=== PATIENT | female | born 1955 | race Caucasian/White ===

== ENCOUNTER 2016-04-19 09:01 | Day surgery (SDC) | payer OTHER ==
[~2016-04-19] VITALS: Ht 160 cm; Wt 50.3 kg
[2016-04-19] VITALS (10 sets, daily range): BP systolic 108–132; BP diastolic 55–76; PULSE 56–110; RESP 14–18; Ht 160 cm; Wt 50.3 kg
[~2016-04-19 09:01] MED LIST: ALPR0.25 PO; D5W-0.45 NACL + KCL 20 MEQ 1,000 ML IV SCH; EPHEDrine SULFATE 50 MG/5 ML SYG ONE
--- NOTE | 2016-04-19 10:48 | HPN ---
Date/Time of Note Date/Time of Note DATE: 04/19/16 TIME: 10:48 Interval H&P Admission Note Pt. seen H&P reviewed: No system changes Pt. seen H&P reviewed. No system changes (I attest that I have seen and examined the patient and reviewed the operation in detail, as well as its risks , benefits and alternatives of the operation). I attest that I have seen and examined the patient and reviewed in detail the operation, and its associated risks, benefits and alternative. I have answered all the patient's questions to the best of my ability and the patient wishes to proceed. Please refer to rest of electronic medical record for additional updates. CHINYERE MONDRAGON M.D. Apr 19, 2016 10:48
[2016-04-19] MEDS ORDERED: MIDAZOLAM 1 MG/ML 2 ML INJ ONE (11:03)
[2016-04-19] MEDS ORDERED: FENTAnyl 50 MCG/ML VIAL ONE (11:03)
[2016-04-19] MEDS ORDERED: ONDANSETRON 4 MG INJ ONE (11:12)
[2016-04-19] MEDS ORDERED: FAMOTIDINE 20 MG INJ ONE (11:12)
[2016-04-19] MEDS ORDERED: ROCURONIUM 50 MG INJ ONE (11:12)
[2016-04-19] MEDS ORDERED: METOCLOPRAMIDE 10 MG INJ ONE (11:12)
[2016-04-19] MEDS ORDERED: PROPOFOL 20 ML ONE (11:12)
[2016-04-19] MEDS ORDERED: DIPHENHYDRAMINE 50 MG INJ ONE (11:13)
[2016-04-19] MEDS ORDERED: DEXAMETHASONE 4 MG/ML 1 ML INJ ONE (11:13)
[2016-04-19] MEDS ORDERED: CEFAZOLIN 1 GM INJ ONE (11:16)
[2016-04-19] MEDS ORDERED: BUPIVACAINE 0.25%/EPI (SDV) 30 ML INJ ONE (11:26)
[2016-04-19] MEDS ORDERED: HYDROmorphONE (0.2 MG/ML) 10ML SYG IV PRN ×3 (11:30)
[2016-04-19] MEDS ORDERED: ONDANSETRON 4 MG INJ IV PRN (11:30)
[2016-04-19] MEDS ORDERED: EPHEDrine SULFATE 50 MG/5 ML SYG IV PRN (11:30)
[2016-04-19] MEDS ORDERED: FENTAnyl 50 MCG/ML VIAL IV PRN ×3 (11:30)
[2016-04-19] MEDS ORDERED: morphine (1 MG/ML) 10ML SYRINGE IV PRN ×3 (11:30)
[2016-04-19] MEDS ORDERED: GLYCOPYRROLATE 0.4 MG INJ ONE (11:51)
[2016-04-19] MEDS ORDERED: NEOSTIGMINE 3 MG/3 ML SYRINGE ONE (11:51)
--- NOTE | 2016-04-19 12:18 | OPR ---
Date/Time of Note Date/Time of Note DATE: 04/19/16 TIME: 12:18 Operative Report Operative Findings [facility] INPATIENT OPERATIVE NOTE PLACE OF SERVICE: [facility] DATE OF SURGERY: 04/19/2016 PREOPERATIVE DIAGNOSIS: 1. Anxiety 2. History of above-mentioned anal carcinoma. 3. History of above-mentioned endometrial carcinoma. 4. Status post left groin hernia repair in 1981. 5. section in 1985. 6. Total abdominal hysterectomy and bilateral salpingo-oophorectomy 2015. 7. S/p groin dissection and removal of the L groin chain lymphatic tissues 11/27, followed by radiation to L buttock region 12/25/15-02/05/16 (52.2 Gy, 29 fx x 1.8 Gy) POSTOPERATIVE DIAGNOSIS: 1. Anxiety 2. History of above-mentioned anal carcinoma. 3. History of above-mentioned endometrial carcinoma. 4. Status post left groin hernia repair in 1981. 5. section in 1985. 6. Total abdominal hysterectomy and bilateral salpingo-oophorectomy 2015. 7. S/p groin dissection and removal of the L groin chain lymphatic tissues 11/27, followed by radiation to L buttock region 12/25/15-02/05/16 (52.2 Gy, 29 fx x 1.8 Gy) OPERATION: 1. Excisional resection of left buttock skin lesion with removal of 5 cm x 2 cm x 8 mm oval area and primary closure of skin SURGEON: Chinyere Mondragon M.D. DIRECTOR WORKFORCE MANAGEMENT: None ANESTHESIA: General endotracheal tube anesthesia ANESTHESIOLOGIST: Patsy Bueno M.D. BRIEF SUMMARY: An otherwise uncomplicated excision of left buttock skin lesion was performed with findings of no obvious residual mass and great response to radiation therapy. BRIEF HISTORY: The patient is a very pleasant 60-year-old lady well known to me from prior initial visit with us on 12/07/2015 with history of anal cancer with local recurrence in her groin as well as along the edge of previous radiation field of the perianal skin who is s/p groin dissection and removal of the L groin chain lymphatic tissues 11/28/15, followed by radiation to L buttock region 12/25/15-02/05/16 (52.2 Gy, 29 fx x 1.8 Gy) and tolerated it well. PET-CT 03/14/16 showed complete metabolic response and no new lesions/abnormalities. Overall she is doing well and at this time, can undergo resection of the site of the L groin lesion. Will likely be able to do this without a flap. Discussed surgery in detail with patient and his son and reviewed risks, benefits and alternatives. Answered all of the patient's and son's questions and obtained their consent for the operation. For a detailed report of my consultation with patient and family, please refer to my separate consultation note. Updated Clinical Summary: The patient is a very pleasant 60-year-old lady with history significant for anxiety as well as stage I endometrial cancer status post total abdominal hysterectomy and bilateral salpingo-oophorectomy laparoscopically with mini- laparotomy by Dr. Alex Delgado who has been battling stage III anorectal squamous cell carcinoma which was diagnosed on 09/03/2014 during colonoscopy with finding of poorly differentiated squamous cell carcinoma. The patient had a CT scan on 09/11/2014 that showed fatty liver disease and enhancing masses in the anus predominantly in the left side measuring 4.6 cm in greatest dimension and uterine fibroids. There is also normal left superficial inguinal lymph node present highly concerning for johnathon metastasis. Abnormal thickening of the endometrium measuring 2.5 cm which may reflect endometrial hyperplasia was also noted. The patient underwent a TAHBSO on 05/26/2015 of which the pathology shows superficial myometrial invasion of two microscopic foci infiltrating the stroma by a couple of millimeters, grade I endometria with adenocarcinoma. The patient underwent radiation therapy. No significant other comorbid issues who was found to have anal malignancy in the form of poorly differentiated squamous cell carcinoma after colonoscopy on 09/03/2014. This was stage IIIB, T3, N2, and [address] scan on 09/11/2014 showing fatty liver and enhancing masses in the anus predominantly in the left side measuring 4.6 cm in greatest diameter and uterine fibroids. Abnormal left superficial inguinal lymph node highly concerning for johnathon metastasis was also found. Incidentally, there was abnormal thickening of the endometrium measuring 2.5 cm which may reflect endometrial hyperplasia. The patient was treated with radiation with overall, delivery of 54 Gy in 30 fractions that was completed on 11/28/2014. Patient has been under surveillance and a CT scan on 07/03/2015 showed no evidence for recurrent anorectal mass or evidence to suggest johnathon or metastatic disease within the abdomen and pelvis was found. The patient herself noted a nodule to the left of anus on the left cheek and after further investigation a PET CT done on 11/14/2015 demonstrated hypermetabolic cutaneous thickening along the left gluteal fold likely inflammatory or infectious and a tiny mass in the left inguinal lymph node region, nonspecific and may be related to above cutaneous process was found. The area of the left groin appears to be larger in size than previous CT images. She was presented in a multidisciplinary fashion and the consensus of the group was that this area should be biopsied with the presumption of recurrent anal squamous cell at the margin of previous radiation field around the anus as well as presence of metastatic disease in the groin. Patient also has been found to have grade I endometrial malignancy and she underwent total abdominal hysterectomy as well as bilateral salpingo- oophorectomy on 05/26/2015 with finding of a minute foci of endometrial carcinoma which was thought to be grade I. Otherwise, the patient has doing well and she does not have any pain complaints. Her bowel movements have been normal and no issues with bleeding. No problems with shortness of breath or cough. No difficulties with significant weight gain or weight loss. No other major positives or major negatives in a complete 14-point review of systems. S/ p groin dissection and removal of the L groin chain lymphatic tissues 11/28/15, followed by radiation to L buttock region 12/25/15-02/05/16 (52.2 Gy, 29 fx x 1.8 Gy). STATEMENT OF THE INFORMED CONSENT: The patient and family appeared to understand the risks of the operation to include, but not be limited to risk of postoperative pain and scar tissue, possible infection or bleeding requiring other interventions such as opening the wound, placement of drainage catheters, or other operative interventions; possible injury to surrounding to structures including bowel, bladder, bile duct, or blood vessels, or solid organs such as liver, kidney, or pancreas requiring other interventions or procedures; possible leakage of bowel from anastomotic sites or suture lines causing significant increase in morbidity and mortality and requiring multiple interventions including but not limited to, placement of drainage catheters, imaging studies, as well as operative interventions; possible other source of sepsis such as urinary tract infections or pneumonias, or other sources of potentially life threatening problems such as deep venous thrombus formation causing pulmonary embolism, myocardial arrhythmias and infarctions, and even . We also briefly discussed the potential need to receive blood products and their potential complications of blood transfusion reactions, transmission of infections, or other complications. After careful consideration of all their options, the patient and family appeared to understand and wished to proceed with surgery. DESCRIPTION OF PROCEDURE: After obtaining informed consent, the patient was brought into the operating room and was placed in a normal supine position, where successful general endotracheal tube anesthesia was performed. Intravenous access was already in place and intravenous antimicrobials had been appropriately chosen and dosed prior to the operation. The patient was then placed in a prone position. The patient's perianal and buttock skin was prepped and draped in the usual sterile fashion. We then called a surgical time-out where the patient's identification, date of , nature of the operation, allergies, presence of intravenous antimicrobials, presence of needed equipment , and any other concerns were reviewed and agreed upon by all members of the operating room team. We then started the operation by marking the area of the resection, keeping the area of interest in the center of the oval region which was located 2 cm away from the perineum. An use combination of scalpel as well as cautery to remove a 5 cm x 2 cm x 8 mm area of skin. We marked the specimen with long suture marking the lateral apex of the oval and short suture marking the superior edge and sent this to pathology for permanent sections. We then reapproximated the skin flaps using 3-0 Vicryl interrupted suture followed by reapproximating the skin with 2-0 nylon suture mattress style interrupted. We then injected the area with quarter percent Marcaine with epinephrine. Light dressing was then applied. At the end of the operation, both the sponge count and needle count were reportedly correct x2. The patient tolerated the procedure without any reported complications. ESTIMATED BLOOD LOSS: Less than 10 mL. BLOOD OR BLOOD PRODUCT TRANSFUSIONS: None to my knowledge. SPECIMENS: Left buttock skin excision specimen COMPLICATIONS: None. DISPOSITION: Recovery area. Disclaimer: Inadvertent spelling and grammatical errors are likely due to EHR/ dictation software use and do not reflect on the quality of delivered patient care. Also, please note that the electronic time recorded on this node does not necessarily reflect the actual time of the visit. CHINYERE MONDRAGON M.D. Apr 19, 2016 12:18
[2016-04-19] MEDS ORDERED: HYDROCODONE/APAP (5/325) TAB PO PRN ×2 (12:30)
[2016-04-19] MEDS ORDERED: BISACODYL 10 MG SUPP PR PRN (12:30)
[2016-04-19] MEDS ORDERED: DOCUSATE SODIUM 100 MG CAP PO PRN (12:30)
== END 2016-04-19 14:00 | disposition home or self-care (01) ==
LOC: SDS 09:01
PROVIDERS: ATTEND Transplant Surgery
DX: L98.8 Other specified disorders of the skin and subcutaneous tissue (principal); F41.9 Anxiety disorder, unspecified; Z85.048 Personal history of other malignant neoplasm of rectum, rectosigmoid junction, and anus
CPT/HCPCS: 11406; 88305; J0690; J1100; J1200; J2250; J2405; J2710; J2765; J3010; Z7512; Z7610

== ENCOUNTER 2016-05-04 14:36 | Outpatient (CLI) | payer OTHER ==
[~2016-05-04] VITALS: Ht 157.5 cm; Wt 51.8 kg
[~2016-05-04 14:36] MED LIST changes: -D5W-0.45 NACL + KCL 20 MEQ 1,000 ML IV SCH; -EPHEDrine SULFATE 50 MG/5 ML SYG ONE
[2016-05-04 14:40] VITALS: BP 147/75; PULSE 80; RESP 18; Ht 157.5 cm; Wt 51.8 kg
--- NOTE | 2016-05-04 15:20 | PN ---
Date/Time of Note Date/Time of Note DATE: 05/04/16 TIME: 15:09 Assessment/Plan Assessment/Plan Assessment/Plan [facility] Progress Note Date of Service: 05/04/16 Today's Impression & Plan: Overall doing well post op without major issues. No major wound problems. Keeping the sutures in place for another 2 weeks prior to d/c due to radiated field. Path showed no evidence of residual malignancy. With above assessment, I've recommended the following for today: 1. F/u with PCP 2. F/u with us in 2 weeks for possible suture removal 3. F/u with Dr. Montaño for radiation oncology Thank you again for your great care of this very pleasant patient and wonderful family. If there are any questions, please feel free to call me at [phone]. TOTAL VISIT TIME: 20 minutes of which more than half was spent in [id number] discussion with the patient, possibly including family, as well as coordination of care between multiple physicians and providers. Disclaimer: Inadvertent spelling or grammatical errors are likely due to EHR/ dictation software use and do not reflect on the overall quality of patient care. Updated Clinical Summary: The patient is a very pleasant 60-year-old lady with history significant for anxiety as well as stage I endometrial cancer status post total abdominal hysterectomy and bilateral salpingo-oophorectomy laparoscopically with mini- laparotomy by Dr. Alex Delgado who has been battling stage III anorectal squamous cell carcinoma which was diagnosed on 09/03/2014 during colonoscopy with finding of poorly differentiated squamous cell carcinoma. The patient had a CT scan on 09/11/2014 that showed fatty liver disease and enhancing masses in the anus predominantly in the left side measuring 4.6 cm in greatest dimension and uterine fibroids. There is also normal left superficial inguinal lymph node present highly concerning for johnathon metastasis. Abnormal thickening of the endometrium measuring 2.5 cm which may reflect endometrial hyperplasia was also noted. The patient underwent a TAHBSO on 05/26/2015 of which the pathology shows superficial myometrial invasion of two microscopic foci infiltrating the stroma by a couple of millimeters, grade I endometria with adenocarcinoma. The patient underwent radiation therapy. No significant other comorbid issues who was found to have anal malignancy in the form of poorly differentiated squamous cell carcinoma after colonoscopy on 09/03/2014. This was stage IIIB, T3, N2, and [address] scan on 09/11/2014 showing fatty liver and enhancing masses in the anus predominantly in the left side measuring 4.6 cm in greatest diameter and uterine fibroids. Abnormal left superficial inguinal lymph node highly concerning for johnathon metastasis was also found. Incidentally, there was abnormal thickening of the endometrium measuring 2.5 cm which may reflect endometrial hyperplasia. The patient was treated with radiation with overall, delivery of 54 Gy in 30 fractions that was completed on 11/28/2014. Patient has been under surveillance and a CT scan on 07/03/2015 showed no evidence for recurrent anorectal mass or evidence to suggest jhonathon or metastatic disease within the abdomen and pelvis was found. The patient herself noted a nodule to the left of anus on the left cheek and after further investigation a PET CT done on 11/14/2015 demonstrated hypermetabolic cutaneous thickening along the left gluteal fold likely inflammatory or infectious and a tiny mass in the left inguinal lymph node region, nonspecific and may be related to above cutaneous process was found. The area of the left groin appears to be larger in size than previous CT images. She was presented in a multidisciplinary fashion and the consensus of the group was that this area should be biopsied with the presumption of recurrent anal squamous cell at the margin of previous radiation field around the anus as well as presence of metastatic disease in the groin. Patient also has been found to have grade I endometrial malignancy and she underwent total abdominal hysterectomy as well as bilateral salpingo- oophorectomy on 05/26/2015 with finding of a minute foci of endometrial carcinoma which was thought to be grade I. Otherwise, the patient has doing well and she does not have any pain complaints. Her bowel movements have been normal and no issues with bleeding. No problems with shortness of breath or cough. No difficulties with significant weight gain or weight loss. No other major positives or major negatives in a complete 14-point review of systems. S/ p groin dissection and removal of the L groin chain lymphatic tissues 11/28/15, followed by radiation to L buttock region 12/25/15-02/05/16 (52.2 Gy, 29 fx x 1.8 Gy). S/p excisional resection of left buttock skin lesion with removal of 5 cm x 2 cm x 8 mm oval area and primary closure of skin 04/19/16 with no malignancy found in the final specimen (only radiation scarring). Past and Present Comorbidities: 1. Anxiety 2. History of above-mentioned anal carcinoma. 3. History of above-mentioned endometrial carcinoma. 4. Status post left groin hernia repair in 1981. 5. section in 1985. 6. Total abdominal hysterectomy and bilateral salpingo-oophorectomy 2015. 7. S/p groin dissection and removal of the L groin chain lymphatic tissues 11/27, followed by radiation to L buttock region 12/25/15-02/05/16 (52.2 Gy, 29 fx x 1.8 Gy). S/p excisional resection of left buttock skin lesion with removal of 5 cm x 2 cm x 8 mm oval area and primary closure of skin 04/19/16 with no malignancy found in the final specimen (only radiation scarring). Subjective: No major events or complaints; no perirectal or abd pain; no n/v/d; no sob or cp ; + flatus; + BM and normal; + activity Objective: Vitals: See below Exam: GENERAL: On exam, the patient was sitting in a chair and appeared to be comfortable and in no acute distress. ABDOMEN: Soft, nontender and nondistended. Preirectal incision is clean, dry and intact without any evidence of erythema, edema, discharge, or hernia. Sutures in place. There are no peritoneal signs or guarding. SKIN: Skin appears to be pink and feels warm to touch. NEUROLOGIC: Patient is awake, alert, and follows commands appropriately. Exam/Review of Systems Vital Signs Vitals Vital Signs Date Time Temp Pulse Resp B/P Pulse Ox O2 Delivery O2 Flow Rate FiO2 05/04/16 14:40 98.8 80 18 147/75 100 Room Air CHINYERE MONDRAGON M.D. May 04, 2016 15:20
== END 2016-05-04 16:47 | disposition home or self-care (01) ==
LOC: HPC 14:36
PROVIDERS: ATTEND Transplant Surgery
DX: C54.1 Malignant neoplasm of endometrium (principal); N85.00 Endometrial hyperplasia, unspecified; F41.9 Anxiety disorder, unspecified; Z90.710 Acquired absence of both cervix and uterus
CPT/HCPCS: G0463

== ENCOUNTER 2016-05-18 14:24 | Outpatient (CLI) | payer OTHER ==
[~2016-05-18] VITALS: Ht 158.8 cm; Wt 51.4 kg
[2016-05-18 14:33] VITALS: BP 138/64; PULSE 75; RESP 16; Ht 158.8 cm; Wt 51.4 kg
--- NOTE | 2016-05-18 14:56 | PN ---
Date/Time of Note Date/Time of Note DATE: 05/18/16 TIME: 14:51 Assessment/Plan Assessment/Plan Assessment/Plan [facility] Progress Note Date of Service: 05/18/16 Today's Impression & Plan: Overall doing well post op without major issues. No major wound problems. Did not feel it to be the right time taking the sutures out due to healing delay secondary to radiation. Keeping the sutures in place for another 2 weeks prior to d/c due to radiated field. With above assessment, I've recommended the following for today: 1. F/u with PCP 2. F/u with us in 2 weeks for possible suture removal 3. F/u with Dr. Montaño for radiation oncology Thank you again for your great care of this very pleasant patient and wonderful family. If there are any questions, please feel free to call me at [phone]. TOTAL VISIT TIME: 20 minutes of which more than half was spent in [id number] discussion with the patient, possibly including family, as well as coordination of care between multiple physicians and providers. Disclaimer: Inadvertent spelling or grammatical errors are likely due to EHR/ dictation software use and do not reflect on the overall quality of patient care. Updated Clinical Summary: The patient is a very pleasant 60-year-old lady with history significant for anxiety as well as stage I endometrial cancer status post total abdominal hysterectomy and bilateral salpingo-oophorectomy laparoscopically with mini- laparotomy by Dr. Alex Delgado who has been battling stage III anorectal squamous cell carcinoma which was diagnosed on 09/03/2014 during colonoscopy with finding of poorly differentiated squamous cell carcinoma. The patient had a CT scan on 09/11/2014 that showed fatty liver disease and enhancing masses in the anus predominantly in the left side measuring 4.6 cm in greatest dimension and uterine fibroids. There is also normal left superficial inguinal lymph node present highly concerning for johnathon metastasis. Abnormal thickening of the endometrium measuring 2.5 cm which may reflect endometrial hyperplasia was also noted. The patient underwent a TAHBSO on 05/26/2015 of which the pathology shows superficial myometrial invasion of two microscopic foci infiltrating the stroma by a couple of millimeters, grade I endometria with adenocarcinoma. The patient underwent radiation therapy. No significant other comorbid issues who was found to have anal malignancy in the form of poorly differentiated squamous cell carcinoma after colonoscopy on 09/03/2014. This was stage IIIB, T3, N2, and [address] scan on 09/11/2014 showing fatty liver and enhancing masses in the anus predominantly in the left side measuring 4.6 cm in greatest diameter and uterine fibroids. Abnormal left superficial inguinal lymph node highly concerning for johnathon metastasis was also found. Incidentally, there was abnormal thickening of the endometrium measuring 2.5 cm which may reflect endometrial hyperplasia. The patient was treated with radiation with overall, delivery of 54 Gy in 30 fractions that was completed on 11/28/2014. Patient has been under surveillance and a CT scan on 07/03/2015 showed no evidence for recurrent anorectal mass or evidence to suggest johnathon or metastatic disease within the abdomen and pelvis was found. The patient herself noted a nodule to the left of anus on the left cheek and after further investigation a PET CT done on 11/14/2015 demonstrated hypermetabolic cutaneous thickening along the left gluteal fold likely inflammatory or infectious and a tiny mass in the left inguinal lymph node region, nonspecific and may be related to above cutaneous process was found. The area of the left groin appears to be larger in size than previous CT images. She was presented in a multidisciplinary fashion and the consensus of the group was that this area should be biopsied with the presumption of recurrent anal squamous cell at the margin of previous radiation field around the anus as well as presence of metastatic disease in the groin. Patient also has been found to have grade I endometrial malignancy and she underwent total abdominal hysterectomy as well as bilateral salpingo- oophorectomy on 05/26/2015 with finding of a minute foci of endometrial carcinoma which was thought to be grade I. Otherwise, the patient has doing well and she does not have any pain complaints. Her bowel movements have been normal and no issues with bleeding. No problems with shortness of breath or cough. No difficulties with significant weight gain or weight loss. No other major positives or major negatives in a complete 14-point review of systems. S/ p groin dissection and removal of the L groin chain lymphatic tissues 11/28/15, followed by radiation to L buttock region 12/25/15-02/05/16 (52.2 Gy, 29 fx x 1.8 Gy). S/p excisional resection of left buttock skin lesion with removal of 5 cm x 2 cm x 8 mm oval area and primary closure of skin 04/19/16 with no malignancy found in the final specimen (only radiation scarring). Past and Present Comorbidities: 1. Anxiety 2. History of above-mentioned anal carcinoma. 3. History of above-mentioned endometrial carcinoma. 4. Status post left groin hernia repair in 1981. 5. section in 1985. 6. Total abdominal hysterectomy and bilateral salpingo-oophorectomy 2015. 7. S/p groin dissection and removal of the L groin chain lymphatic tissues 11/27, followed by radiation to L buttock region 12/25/15-02/05/16 (52.2 Gy, 29 fx x 1.8 Gy). S/p excisional resection of left buttock skin lesion with removal of 5 cm x 2 cm x 8 mm oval area and primary closure of skin 04/19/16 with no malignancy found in the final specimen (only radiation scarring). Subjective: No major events or complaints; no perirectal or abd pain; no n/v/d; no sob or cp ; + flatus; + BM and normal; + activity Objective: Vitals: See below Exam: GENERAL: On exam, the patient was sitting in a chair and appeared to be comfortable and in no acute distress. ABDOMEN: Soft, nontender and nondistended. Preirectal incision is clean, dry and mild skin opening without any evidence of erythema, edema, discharge, or hernia. Sutures in place. There are no peritoneal signs or guarding. SKIN: Skin appears to be pink and feels warm to touch. NEUROLOGIC: Patient is awake, alert, and follows commands appropriately. Exam/Review of Systems Vital Signs Vitals Vital Signs Date Time Temp Pulse Resp B/P Pulse Ox O2 Delivery O2 Flow Rate FiO2 05/18/16 14:33 98.5 75 16 138/64 97 Room Air CHINYERE MONDRAGON M.D. May 18, 2016 14:56
== END 2016-05-18 16:52 | disposition home or self-care (01) ==
LOC: HPC 14:24
PROVIDERS: ATTEND Transplant Surgery
DX: C54.1 Malignant neoplasm of endometrium (principal); C21.0 Malignant neoplasm of anus, unspecified; D25.9 Leiomyoma of uterus, unspecified; K76.0 Fatty (change of) liver, not elsewhere classified; K62.9 Disease of anus and rectum, unspecified; Z90.710 Acquired absence of both cervix and uterus
CPT/HCPCS: G0463

== ENCOUNTER 2016-05-25 10:39 | Outpatient (CLI) | payer OTHER ==
[~2016-05-25] VITALS: Ht 158.8 cm; Wt 51.8 kg
[2016-05-25 10:58] VITALS: BP 117/65; PULSE 75; RESP 18; Ht 158.8 cm; Wt 51.8 kg
--- NOTE | 2016-05-25 11:48 | PN ---
Date/Time of Note Date/Time of Note DATE: 05/25/16 TIME: 11:33 Assessment/Plan Assessment/Plan Assessment/Plan [facility] Progress Note Date of Service: 05/25/16 Today's Impression & Plan: Overall doing well post op without major issues, but with ongoing slow rate of healing of surgical site, directly related to radiation history. No evidence of wound infection. Keeping the sutures in place for another 2 weeks prior to follow up. Given clinical picture, expect wound healing to require at least another 1-2 months for skin ulcer area to close. With above assessment, I've recommended the following for today: 1. F/u with PCP 2. F/u with us in 2 weeks for recheck 3. F/u with Dr. Montaño for radiation oncology Thank you again for your great care of this very pleasant patient and wonderful family. If there are any questions, please feel free to call me at [phone]. TOTAL VISIT TIME: 20 minutes of which more than half was spent in [id number] discussion with the patient, possibly including family, as well as coordination of care between multiple physicians and providers. Disclaimer: Inadvertent spelling or grammatical errors are likely due to EHR/ dictation software use and do not reflect on the overall quality of patient care. Updated Clinical Summary: The patient is a very pleasant 60-year-old lady with history significant for anxiety as well as stage I endometrial cancer status post total abdominal hysterectomy and bilateral salpingo-oophorectomy laparoscopically with mini- laparotomy by Dr. Alex Delgado who has been battling stage III anorectal squamous cell carcinoma which was diagnosed on 09/03/2014 during colonoscopy with finding of poorly differentiated squamous cell carcinoma. The patient had a CT scan on 09/11/2014 that showed fatty liver disease and enhancing masses in the anus predominantly in the left side measuring 4.6 cm in greatest dimension and uterine fibroids. There is also normal left superficial inguinal lymph node present highly concerning for johnathon metastasis. Abnormal thickening of the endometrium measuring 2.5 cm which may reflect endometrial hyperplasia was also noted. The patient underwent a TAHBSO on 05/26/2015 of which the pathology shows superficial myometrial invasion of two microscopic foci infiltrating the stroma by a couple of millimeters, grade I endometria with adenocarcinoma. The patient underwent radiation therapy. No significant other comorbid issues who was found to have anal malignancy in the form of poorly differentiated squamous cell carcinoma after colonoscopy on 09/03/2014. This was stage IIIB, T3, N2, and [address] scan on 09/11/2014 showing fatty liver and enhancing masses in the anus predominantly in the left side measuring 4.6 cm in greatest diameter and uterine fibroids. Abnormal left superficial inguinal lymph node highly concerning for johnathon metastasis was also found. Incidentally, there was abnormal thickening of the endometrium measuring 2.5 cm which may reflect endometrial hyperplasia. The patient was treated with radiation with overall, delivery of 54 Gy in 30 fractions that was completed on 11/28/2014. Patient has been under surveillance and a CT scan on 07/03/2015 showed no evidence for recurrent anorectal mass or evidence to suggest johnathon or metastatic disease within the abdomen and pelvis was found. The patient herself noted a nodule to the left of anus on the left cheek and after further investigation a PET CT done on 11/14/2015 demonstrated hypermetabolic cutaneous thickening along the left gluteal fold likely inflammatory or infectious and a tiny mass in the left inguinal lymph node region, nonspecific and may be related to above cutaneous process was found. The area of the left groin appears to be larger in size than previous CT images. She was presented in a multidisciplinary fashion and the consensus of the group was that this area should be biopsied with the presumption of recurrent anal squamous cell at the margin of previous radiation field around the anus as well as presence of metastatic disease in the groin. Patient also has been found to have grade I endometrial malignancy and she underwent total abdominal hysterectomy as well as bilateral salpingo- oophorectomy on 05/26/2015 with finding of a minute foci of endometrial carcinoma which was thought to be grade I. Otherwise, the patient has doing well and she does not have any pain complaints. Her bowel movements have been normal and no issues with bleeding. No problems with shortness of breath or cough. No difficulties with significant weight gain or weight loss. No other major positives or major negatives in a complete 14-point review of systems. S/ p groin dissection and removal of the L groin chain lymphatic tissues 11/28/15, followed by radiation to L buttock region 12/25/15-02/05/16 (52.2 Gy, 29 fx x 1.8 Gy). S/p excisional resection of left buttock skin lesion with removal of 5 cm x 2 cm x 8 mm oval area and primary closure of skin 04/19/16 with no malignancy found in the final specimen (only radiation scarring). Past and Present Comorbidities: 1. Anxiety 2. History of above-mentioned anal carcinoma. 3. History of above-mentioned endometrial carcinoma. 4. Status post left groin hernia repair in 1981. 5. section in 1985. 6. Total abdominal hysterectomy and bilateral salpingo-oophorectomy 2015. 7. S/p groin dissection and removal of the L groin chain lymphatic tissues 11/27, followed by radiation to L buttock region 12/25/15-02/05/16 (52.2 Gy, 29 fx x 1.8 Gy). S/p excisional resection of left buttock skin lesion with removal of 5 cm x 2 cm x 8 mm oval area and primary closure of skin 04/19/16 with no malignancy found in the final specimen (only radiation scarring). Subjective: No major events or complaints; no perirectal or abd pain; no n/v/d; no sob or cp ; + flatus; + BM and normal; + activity; wanted to be seen early because of mild amount of clear discharge Objective: Vitals: See below Exam: GENERAL: On exam, the patient was sitting in a chair and appeared to be comfortable and in no acute distress. ABDOMEN: Soft, nontender and nondistended. Perirectal incision is clean, dry and mild skin opening without any evidence of erythema, edema, discharge, or hernia. Sutures in place. There are no peritoneal signs or guarding. SKIN: Skin appears to be pink and feels warm to touch. NEUROLOGIC: Patient is awake, alert, and follows commands appropriately. Exam/Review of Systems Vital Signs Vitals Vital Signs Date Time Temp Pulse Resp B/P Pulse Ox O2 Delivery O2 Flow Rate FiO2 05/25/16 10:58 98.6 75 18 117/65 98 Room Air CHINYERE MONDRAGON M.D. May 25, 2016 11:48
== END 2016-05-25 17:00 | disposition home or self-care (01) ==
LOC: HPC 10:39
PROVIDERS: ATTEND Transplant Surgery
DX: C54.1 Malignant neoplasm of endometrium (principal); F41.9 Anxiety disorder, unspecified; Z90.710 Acquired absence of both cervix and uterus; Z85.048 Personal history of other malignant neoplasm of rectum, rectosigmoid junction, and anus
CPT/HCPCS: G0463

== ENCOUNTER 2016-06-08 15:02 | Outpatient (CLI) | payer OTHER ==
[~2016-06-08] VITALS: Ht 158.8 cm; Wt 50.9 kg
[2016-06-08 15:10] VITALS: BP 134/64; PULSE 78; RESP 18; Ht 158.8 cm; Wt 50.9 kg
--- NOTE | 2016-06-08 15:53 | PN ---
Date/Time of Note Date/Time of Note DATE: 06/08/16 TIME: 15:21 Assessment/Plan Assessment/Plan Assessment/Plan [facility] Progress Note Date of Service: 06/08/16 Today's Impression & Plan: Overall doing well post op without major issues, but with ongoing slow rate of healing of surgical site, directly related to radiation history. No evidence of wound infection. D/c'd sutures since no longer effective (skin open and sutures no longer serving a purpose). Given clinical picture, expect wound healing to require at least another 2-3 months for skin ulcer area to close. With above assessment, I've recommended the following for today: 1. F/u with PCP 2. F/u with us in 4-6 weeks for recheck 3. F/u with Dr. Montaño for radiation oncology Thank you again for your great care of this very pleasant patient and wonderful family. If there are any questions, please feel free to call me at [phone]. TOTAL VISIT TIME: 20 minutes of which more than half was spent in [id number] discussion with the patient, possibly including family, as well as coordination of care between multiple physicians and providers. Disclaimer: Inadvertent spelling or grammatical errors are likely due to EHR/ dictation software use and do not reflect on the overall quality of patient care. Updated Clinical Summary: The patient is a very pleasant 60-year-old lady with history significant for anxiety as well as stage I endometrial cancer status post total abdominal hysterectomy and bilateral salpingo-oophorectomy laparoscopically with mini- laparotomy by Dr. Alex Delgado who has been battling stage III anorectal squamous cell carcinoma which was diagnosed on 09/03/2014 during colonoscopy with finding of poorly differentiated squamous cell carcinoma. The patient had a CT scan on 09/11/2014 that showed fatty liver disease and enhancing masses in the anus predominantly in the left side measuring 4.6 cm in greatest dimension and uterine fibroids. There is also normal left superficial inguinal lymph node present highly concerning for johnathon metastasis. Abnormal thickening of the endometrium measuring 2.5 cm which may reflect endometrial hyperplasia was also noted. The patient underwent a TAHBSO on 05/26/2015 of which the pathology shows superficial myometrial invasion of two microscopic foci infiltrating the stroma by a couple of millimeters, grade I endometria with adenocarcinoma. The patient underwent radiation therapy. No significant other comorbid issues who was found to have anal malignancy in the form of poorly differentiated squamous cell carcinoma after colonoscopy on 09/03/2014. This was stage IIIB, T3, N2, and [address] scan on 09/11/2014 showing fatty liver and enhancing masses in the anus predominantly in the left side measuring 4.6 cm in greatest diameter and uterine fibroids. Abnormal left superficial inguinal lymph node highly concerning for johnathon metastasis was also found. Incidentally, there was abnormal thickening of the endometrium measuring 2.5 cm which may reflect endometrial hyperplasia. The patient was treated with radiation with overall, delivery of 54 Gy in 30 fractions that was completed on 11/28/2014. Patient has been under surveillance and a CT scan on 07/03/2015 showed no evidence for recurrent anorectal mass or evidence to suggest johnathon or metastatic disease within the abdomen and pelvis was found. The patient herself noted a nodule to the left of anus on the left cheek and after further investigation a PET CT done on 11/14/2015 demonstrated hypermetabolic cutaneous thickening along the left gluteal fold likely inflammatory or infectious and a tiny mass in the left inguinal lymph node region, nonspecific and may be related to above cutaneous process was found. The area of the left groin appears to be larger in size than previous CT images. She was presented in a multidisciplinary fashion and the consensus of the group was that this area should be biopsied with the presumption of recurrent anal squamous cell at the margin of previous radiation field around the anus as well as presence of metastatic disease in the groin. Patient also has been found to have grade I endometrial malignancy and she underwent total abdominal hysterectomy as well as bilateral salpingo- oophorectomy on 05/26/2015 with finding of a minute foci of endometrial carcinoma which was thought to be grade I. Otherwise, the patient has doing well and she does not have any pain complaints. Her bowel movements have been normal and no issues with bleeding. No problems with shortness of breath or cough. No difficulties with significant weight gain or weight loss. No other major positives or major negatives in a complete 14-point review of systems. S/ p groin dissection and removal of the L groin chain lymphatic tissues 11/28/15, followed by radiation to L buttock region 12/25/15-02/05/16 (52.2 Gy, 29 fx x 1.8 Gy). S/p excisional resection of left buttock skin lesion with removal of 5 cm x 2 cm x 8 mm oval area and primary closure of skin 04/19/16 with no malignancy found in the final specimen (only radiation scarring). Sutures removed 06/08/16 with wound essentially open, but superficial. Past and Present Comorbidities: 1. Anxiety 2. History of above-mentioned anal carcinoma. 3. History of above-mentioned endometrial carcinoma. 4. Status post left groin hernia repair in 1981. 5. section in 1985. 6. Total abdominal hysterectomy and bilateral salpingo-oophorectomy 2015. 7. S/p groin dissection and removal of the L groin chain lymphatic tissues 11/27, followed by radiation to L buttock region 12/25/15-02/05/16 (52.2 Gy, 29 fx x 1.8 Gy). S/p excisional resection of left buttock skin lesion with removal of 5 cm x 2 cm x 8 mm oval area and primary closure of skin 04/19/16 with no malignancy found in the final specimen (only radiation scarring). Subjective: No major events or complaints; no perirectal or abd pain; no n/v/d; no sob or cp ; + flatus; + BM and normal; + activity Objective: Vitals: See below Exam: GENERAL: On exam, the patient was sitting in a chair and appeared to be comfortable and in no acute distress. ABDOMEN: Soft, nontender and nondistended. Perirectal incision is clean, dry and mild skin opening without any evidence of erythema, edema, discharge, or hernia. Sutures removed 06/08/16 with wound essentially open, but superficial.. There are no peritoneal signs or guarding. SKIN: Skin appears to be pink and feels warm to touch. NEUROLOGIC: Patient is awake, alert, and follows commands appropriately. Exam/Review of Systems Vital Signs Vitals Vital Signs Date Time Temp Pulse Resp B/P Pulse Ox O2 Delivery O2 Flow Rate FiO2 06/08/16 15:10 98.0 78 18 134/64 98 Room Air CHINYERE MONDRAGON M.D. Jun 08, 2016 15:53
== END 2016-06-08 16:14 | disposition home or self-care (01) ==
LOC: HPC 15:02
PROVIDERS: ATTEND Transplant Surgery
DX: C54.1 Malignant neoplasm of endometrium (principal); C21.8 Malignant neoplasm of overlapping sites of rectum, anus and anal canal; N85.00 Endometrial hyperplasia, unspecified; K76.0 Fatty (change of) liver, not elsewhere classified; F41.9 Anxiety disorder, unspecified; Z90.710 Acquired absence of both cervix and uterus
CPT/HCPCS: G0463

== ENCOUNTER 2016-07-06 14:05 | Outpatient (CLI) | payer OTHER ==
[~2016-07-06] VITALS: Ht 157.5 cm; Wt 51.4 kg
[2016-07-06 14:11] VITALS: BP 129/70; PULSE 75; RESP 16; Ht 157.5 cm; Wt 51.4 kg
--- NOTE | 2016-07-06 16:18 | PN ---
Date/Time of Note Date/Time of Note DATE: 07/06/16 TIME: 16:13 Assessment/Plan Assessment/Plan Assessment/Plan [facility] Progress Note Date of Service: 07/06/16 Today's Impression & Plan: Overall doing well post op without major issues. Surgical site L buttocks continuing to slowly heal. Agree with wound service consultation (? benefit from hyperbaric chamber therapy). Given clinical picture, expect wound healing to require at least another 2-3 months for skin ulcer area to close. With above assessment, I've recommended the following for today: 1. F/u with PCP 2. F/u with us in 4-6 weeks for recheck 3. F/u with Dr. Montaño for radiation oncology 4. Referral to nursing education specialist for consultation Thank you again for your great care of this very pleasant patient and wonderful family. If there are any questions, please feel free to call me at [phone]. TOTAL VISIT TIME: 20 minutes of which more than half was spent in [id number] discussion with the patient, possibly including family, as well as coordination of care between multiple physicians and providers. Disclaimer: Inadvertent spelling or grammatical errors are likely due to EHR/ dictation software use and do not reflect on the overall quality of patient care. Updated Clinical Summary: The patient is a very pleasant 60-year-old lady with history significant for anxiety as well as stage I endometrial cancer status post total abdominal hysterectomy and bilateral salpingo-oophorectomy laparoscopically with mini- laparotomy by Dr. Alex Delgado who has been battling stage III anorectal squamous cell carcinoma which was diagnosed on 09/03/2014 during colonoscopy with finding of poorly differentiated squamous cell carcinoma. The patient had a CT scan on 09/11/2014 that showed fatty liver disease and enhancing masses in the anus predominantly in the left side measuring 4.6 cm in greatest dimension and uterine fibroids. There is also normal left superficial inguinal lymph node present highly concerning for johnathon metastasis. Abnormal thickening of the endometrium measuring 2.5 cm which may reflect endometrial hyperplasia was also noted. The patient underwent a TAHBSO on 05/26/2015 of which the pathology shows superficial myometrial invasion of two microscopic foci infiltrating the stroma by a couple of millimeters, grade I endometria with adenocarcinoma. The patient underwent radiation therapy. No significant other comorbid issues who was found to have anal malignancy in the form of poorly differentiated squamous cell carcinoma after colonoscopy on 09/03/2014. This was stage IIIB, T3, N2, and [address] scan on 09/11/2014 showing fatty liver and enhancing masses in the anus predominantly in the left side measuring 4.6 cm in greatest diameter and uterine fibroids. Abnormal left superficial inguinal lymph node highly concerning for johnathon metastasis was also found. Incidentally, there was abnormal thickening of the endometrium measuring 2.5 cm which may reflect endometrial hyperplasia. The patient was treated with radiation with overall, delivery of 54 Gy in 30 fractions that was completed on 11/28/2014. Patient has been under surveillance and a CT scan on 07/03/2015 showed no evidence for recurrent anorectal mass or evidence to suggest johnathon or metastatic disease within the abdomen and pelvis was found. The patient herself noted a nodule to the left of anus on the left cheek and after further investigation a PET CT done on 11/14/2015 demonstrated hypermetabolic cutaneous thickening along the left gluteal fold likely inflammatory or infectious and a tiny mass in the left inguinal lymph node region, nonspecific and may be related to above cutaneous process was found. The area of the left groin appears to be larger in size than previous CT images. She was presented in a multidisciplinary fashion and the consensus of the group was that this area should be biopsied with the presumption of recurrent anal squamous cell at the margin of previous radiation field around the anus as well as presence of metastatic disease in the groin. Patient also has been found to have grade I endometrial malignancy and she underwent total abdominal hysterectomy as well as bilateral salpingo- oophorectomy on 05/26/2015 with finding of a minute foci of endometrial carcinoma which was thought to be grade I. Otherwise, the patient has doing well and she does not have any pain complaints. Her bowel movements have been normal and no issues with bleeding. No problems with shortness of breath or cough. No difficulties with significant weight gain or weight loss. No other major positives or major negatives in a complete 14-point review of systems. S/ p groin dissection and removal of the L groin chain lymphatic tissues 11/28/15, followed by radiation to L buttock region 12/25/15-02/05/16 (52.2 Gy, 29 fx x 1.8 Gy). S/p excisional resection of left buttock skin lesion with removal of 5 cm x 2 cm x 8 mm oval area and primary closure of skin 04/19/16 with no malignancy found in the final specimen (only radiation scarring). Sutures removed 06/08/16 with wound essentially open, but superficial. Past and Present Comorbidities: 1. Anxiety 2. History of above-mentioned anal carcinoma. 3. History of above-mentioned endometrial carcinoma. 4. Status post left groin hernia repair in 1981. 5. section in 1985. 6. Total abdominal hysterectomy and bilateral salpingo-oophorectomy 2015. 7. S/p groin dissection and removal of the L groin chain lymphatic tissues 11/27, followed by radiation to L buttock region 12/25/15-02/05/16 (52.2 Gy, 29 fx x 1.8 Gy). S/p excisional resection of left buttock skin lesion with removal of 5 cm x 2 cm x 8 mm oval area and primary closure of skin 04/19/16 with no malignancy found in the final specimen (only radiation scarring). Subjective: No major events or complaints; no perirectal or abd pain; no n/v/d; no sob or cp ; + flatus; + BM and normal; + activity Objective: Vitals: See below Exam: GENERAL: On exam, the patient was sitting in a chair and appeared to be comfortable and in no acute distress. ABDOMEN: Soft, nontender and nondistended. Perirectal incision is clean, dry and mild skin opening without any evidence of erythema, edema, discharge, or hernia. L buttock wound with clean base of ulcer approximately 1.5 cm in diameter, smaller than last month, no erythema or discharge; no odor. There are no peritoneal signs or guarding. SKIN: Skin appears to be pink and feels warm to touch. NEUROLOGIC: Patient is awake, alert, and follows commands appropriately. Exam/Review of Systems Vital Signs Vitals Vital Signs Date Time Temp Pulse Resp B/P Pulse Ox O2 Delivery O2 Flow Rate FiO2 07/06/16 14:11 98.2 75 16 129/70 96 Room Air CHINYERE MONDRAGON M.D. Jul 06, 2016 16:18
== END 2016-07-06 17:00 | disposition home or self-care (01) ==
LOC: HPC 14:05
PROVIDERS: ATTEND Transplant Surgery
DX: Z48.89 Encounter for other specified surgical aftercare (principal); F41.9 Anxiety disorder, unspecified; Z90.710 Acquired absence of both cervix and uterus; Z85.048 Personal history of other malignant neoplasm of rectum, rectosigmoid junction, and anus; Z85.42 Personal history of malignant neoplasm of other parts of uterus
CPT/HCPCS: G0463

== ENCOUNTER 2016-09-07 14:06 | Outpatient (CLI) | payer OTHER ==
[~2016-09-07] VITALS: Ht 158.8 cm; Wt 51.4 kg
[2016-09-07 14:12] VITALS: BP 119/57; PULSE 74; RESP 18; Ht 158.8 cm; Wt 51.4 kg
--- NOTE | 2016-09-07 14:40 | PN ---
Date/Time of Note Date/Time of Note DATE: 09/07/16 TIME: 14:34 Assessment/Plan Assessment/Plan Assessment/Plan [facility] Progress Note Date of Service: 09/07/16 Today's Impression & Plan: Overall doing well post op without major issues. Surgical site L buttocks continuing to slowly heal and much smaller than a few months ago. No indication for surgical intervention. With above assessment, I've recommended the following for today: 1. F/u with PCP 2. F/u with us prn 3. F/u with Dr. Montaño for radiation oncology 4. F/u with Dr. Spivey and Dr. Delgado Thank you again for your great care of this very pleasant patient and wonderful family. If there are any questions, please feel free to call me at [phone]. TOTAL VISIT TIME: 20 minutes of which more than half was spent in [id number] discussion with the patient, possibly including family, as well as coordination of care between multiple physicians and providers. Disclaimer: Inadvertent spelling or grammatical errors are likely due to EHR/ dictation software use and do not reflect on the overall quality of patient care. Updated Clinical Summary: The patient is a very pleasant 60-year-old lady with history significant for anxiety as well as stage I endometrial cancer status post total abdominal hysterectomy and bilateral salpingo-oophorectomy laparoscopically with mini- laparotomy by Dr. Alex Delgado who has been battling stage III anorectal squamous cell carcinoma which was diagnosed on 09/03/2014 during colonoscopy with finding of poorly differentiated squamous cell carcinoma. The patient had a CT scan on 09/11/2014 that showed fatty liver disease and enhancing masses in the anus predominantly in the left side measuring 4.6 cm in greatest dimension and uterine fibroids. There is also normal left superficial inguinal lymph node present highly concerning for johnathon metastasis. Abnormal thickening of the endometrium measuring 2.5 cm which may reflect endometrial hyperplasia was also noted. The patient underwent a TAHBSO on 05/26/2015 of which the pathology shows superficial myometrial invasion of two microscopic foci infiltrating the stroma by a couple of millimeters, grade I endometria with adenocarcinoma. The patient underwent radiation therapy. No significant other comorbid issues who was found to have anal malignancy in the form of poorly differentiated squamous cell carcinoma after colonoscopy on 09/03/2014. This was stage IIIB, T3, N2, and [address] scan on 09/11/2014 showing fatty liver and enhancing masses in the anus predominantly in the left side measuring 4.6 cm in greatest diameter and uterine fibroids. Abnormal left superficial inguinal lymph node highly concerning for johnathon metastasis was also found. Incidentally, there was abnormal thickening of the endometrium measuring 2.5 cm which may reflect endometrial hyperplasia. The patient was treated with radiation with overall, delivery of 54 Gy in 30 fractions that was completed on 11/28/2014. Patient has been under surveillance and a CT scan on 07/03/2015 showed no evidence for recurrent anorectal mass or evidence to suggest johnathon or metastatic disease within the abdomen and pelvis was found. The patient herself noted a nodule to the left of anus on the left cheek and after further investigation a PET CT done on 11/14/2015 demonstrated hypermetabolic cutaneous thickening along the left gluteal fold likely inflammatory or infectious and a tiny mass in the left inguinal lymph node region, nonspecific and may be related to above cutaneous process was found. The area of the left groin appears to be larger in size than previous CT images. She was presented in a multidisciplinary fashion and the consensus of the group was that this area should be biopsied with the presumption of recurrent anal squamous cell at the margin of previous radiation field around the anus as well as presence of metastatic disease in the groin. Patient also has been found to have grade I endometrial malignancy and she underwent total abdominal hysterectomy as well as bilateral salpingo- oophorectomy on 05/26/2015 with finding of a minute foci of endometrial carcinoma which was thought to be grade I. Otherwise, the patient has doing well and she does not have any pain complaints. Her bowel movements have been normal and no issues with bleeding. No problems with shortness of breath or cough. No difficulties with significant weight gain or weight loss. No other major positives or major negatives in a complete 14-point review of systems. S/ p groin dissection and removal of the L groin chain lymphatic tissues 11/28/15, followed by radiation to L buttock region 12/25/15-02/05/16 (52.2 Gy, 29 fx x 1.8 Gy). S/p excisional resection of left buttock skin lesion with removal of 5 cm x 2 cm x 8 mm oval area and primary closure of skin 04/19/16 with no malignancy found in the final specimen (only radiation scarring). Sutures removed 06/08/16 with wound essentially open, but superficial. Wound 99% healed 09/07/16. Past and Present Comorbidities: 1. Anxiety 2. History of above-mentioned anal carcinoma. 3. History of above-mentioned endometrial carcinoma. 4. Status post left groin hernia repair in 1981. 5. section in 1985. 6. Total abdominal hysterectomy and bilateral salpingo-oophorectomy 2015. 7. S/p groin dissection and removal of the L groin chain lymphatic tissues 11/27, followed by radiation to L buttock region 12/25/15-02/05/16 (52.2 Gy, 29 fx x 1.8 Gy). S/p excisional resection of left buttock skin lesion with removal of 5 cm x 2 cm x 8 mm oval area and primary closure of skin 04/19/16 with no malignancy found in the final specimen (only radiation scarring). Subjective: No major events or complaints; no perirectal or abd pain; no n/v/d; no sob or cp ; + flatus; + BM and normal; + activity Objective: Vitals: See below Exam: GENERAL: On exam, the patient was sitting in a chair and appeared to be comfortable and in no acute distress. ABDOMEN: Soft, nontender and nondistended. Perirectal incision is clean, dry and mild skin opening without any evidence of erythema, edema, discharge, or hernia. L buttock wound essentially 99% healed, no erythema or discharge; no odor. There are no peritoneal signs or guarding. SKIN: Skin appears to be pink and feels warm to touch. NEUROLOGIC: Patient is awake, alert, and follows commands appropriately. Exam/Review of Systems Vital Signs Vitals Vital Signs Date Time Temp Pulse Resp B/P Pulse Ox O2 Delivery O2 Flow Rate FiO2 09/07/16 14:12 98.4 74 18 119/57 100 Room Air CHINYERE MONDRAGON M.D. September 07, 2016 14:40
== END 2016-09-07 15:17 | disposition home or self-care (01) ==
LOC: HPC 14:06
PROVIDERS: ATTEND Transplant Surgery
DX: Z48.817 Encounter for surgical aftercare following surgery on the skin and subcutaneous tissue (principal); K76.0 Fatty (change of) liver, not elsewhere classified; F41.9 Anxiety disorder, unspecified; Z85.048 Personal history of other malignant neoplasm of rectum, rectosigmoid junction, and anus; Z85.42 Personal history of malignant neoplasm of other parts of uterus; Z92.3 Personal history of irradiation; Z90.710 Acquired absence of both cervix and uterus; Z90.722 Acquired absence of ovaries, bilateral
CPT/HCPCS: G0463

== ENCOUNTER 2016-11-30 11:57 | Day surgery (SDC) | payer OTHER ==
[~2016-11-30] VITALS: Ht 160 cm; Wt 49.3 kg
[2016-11-30 12:35] VITALS: Ht 160 cm; Wt 49.3 kg
[2016-11-30 12:55] VITALS: BP 120/69; PULSE 78; RESP 20
[2016-11-30] MEDS ORDERED: MULTI PO (13:01)
[2016-11-30] MEDS ORDERED: LIDOCAINE 2% (SDV) 5 ML INJ ONE (13:46)
[2016-11-30] MEDS ORDERED: PROPOFOL 40 ML ONE (13:46)
--- NOTE | 2016-11-30 14:34 | OPPN ---
Date/Time of Note Date/Time of Note DATE: 11/30/16 TIME: 14:31 Operative Report Preoperative Diagnosis History of anal squamous cell carcinoma postradiation Postoperative Diagnosis Impression: * Radiation injury through the perianal area * Anal stricture/dilated digitally * Mild radiation proctitis. Biopsies obtained * Small internal hemorrhoids * Otherwise normal colonoscopy to cecum Plan: * Continue present regimen * Review pathology * Follow-up as previously scheduled * Surveillance in 3-5 years from GI viewpoint, earlier if oncology or radiation oncology requires . Operation/Procedure Performed Colonoscopy with biopsies Estimated blood loss: minimal Transfusion Required: no Specimens Rectum Grafts/Implants: none Complications: no ALEN GUSMAN MD Nov 30, 2016 14:34
[2016-11-30 15:10] VITALS: BP 98/71; PULSE 65; RESP 18
--- NOTE | 2016-11-30 17:57 | OPPN ---
Date/Time of Note Date/Time of Note DATE: 11/30/16 TIME: 17:53 Proc Note GI Free Text/Dictation Procedure Date: 11/30/2016 Preoperative Diagnosis: History of squamous cell carcinoma of the anus Postoperative Diagnosis: * Radiation injury through the perianal area * Anal stricture/dilated digitally * Mild radiation proctitis. Biopsies obtained * Small internal hemorrhoids * Otherwise normal colonoscopy to cecum Plan: * Continue present regimen * Review pathology * Follow-up as previously scheduled * Surveillance in 3-5 years from GI viewpoint, earlier if oncology or radiation oncology requires Operation Performed: Colonoscopy with biopsies Surgeon: Alen Bearden MD Plastics Process Hand: None Second Online Marketing Director: None Anesthesia/Sedation monitored anesthesia care/Dr. Monroe Tourniquet Time: NA Estimated Blood Loss: Minimal Transfusion Required: No Specimens: Rectum Grafts/Implants: None Tubes/Drains: NA Complications: None Pt. Condition Post Procedure: Stable Disposition: Home After informed consent, with the patient/relatives understanding the procedure, its indications and potential risks and complications, including but not limited to: Allergic reaction, bleeding, perforation, infection, and after all pertinent questions were answered to the patient's satisfaction, the patient/ relatives signed the witnessed informed consent. Following this, premedication was administered slowly IV push under careful cardiovascular and respiratory monitoring with pulse OXIMETRY, automatic blood pressure, and nurse monitoring. Once the sedative effect was achieved, the patient was placed in the left lateral decubitus position, digital rectal examination was performed. A colonoscope was then introduced and advanced under visual control throughout all segments of the colon including: [the rectum, sigmoid, descending colon, splenic flexure, transverse colon, hepatic flexure, ascending colon and finally reaching the cecum which was clearly identified by transillumination, finger indentation and the ileocecal valve.] Careful examination of the mucosa of the lower gastrointestinal tract both on insertion as well as withdrawal of the instrument disclosed the following findings: Preparation quality: [Adequate], Rectal Examination: The anorectal area was visualized examined and digital rectal examination performed with the following findings: There is evidence of radiation injury to the skin of the perianal area. Also some scar tissue is present. The anal sphincter is strictured with fibrotic changes was dilated gently with the index finger. Otherwise no evidence of perirectal disease, no masses.] Colonic mucosa: The mucosa of all segments of the colon was carefully examined and showed the following findings: There is mild erythema congestion and neovascularization the rectum consistent with radiation injury. Biopsies were obtained limited fashion. Small internal hemorrhoids are present. Otherwise the examined mucosa appears within normal limits. There is no evidence of diverticular formation, polyps or other neoplasms, vascular malformation, or any other abnormality.] The instrument was then withdrawn, the patient tolerated the procedure well and was transferred out of the Endoscopy Suite awake and in good condition to continue recovery under observation. Procedure date: Nov 30, 2016 Estimated blood loss: minimal Transfusion Required: no ALEN BEARDEN MD Nov 30, 2016 17:56
== END 2016-11-30 17:27 | disposition home or self-care (01) ==
LOC: GIL 11:57
PROVIDERS: ATTEND Internal Medicine Gastroenterology
DX: Z85.048 Personal history of other malignant neoplasm of rectum, rectosigmoid junction, and anus (principal); K62.4 Stenosis of anus and rectum; K62.7 Radiation proctitis; K64.8 Other hemorrhoids
CPT/HCPCS: 45380; Z7610